=== PATIENT | female | born 1965 | race Caucasian/White ===

== ENCOUNTER 2024-10-18 14:14 | Outpatient (RCR) | payer OTHER, SELFPAY | END 2024-11-11 23:59 | disposition home or self-care (01) | LOC: SCTC 14:14 | PROVIDERS: PCP Physician Assistant; Referring Provider Physician Assistant; Visit Provider Radiology Therapeutic Radiology | DX: C50.212 Malignant neoplasm of upper-inner quadrant of left female breast (principal); Z17.0 Estrogen receptor positive status [ER+]; Z17.21 Progesterone receptor positive status; Z17.32 Human epidermal growth factor receptor 2 negative status; Z80.3 Family history of malignant neoplasm of breast; Z80.1 Family history of malignant neoplasm of trachea, bronchus and lung | CPT/HCPCS: 99213; G0463 ==

== ENCOUNTER 2024-11-16 08:59 | Outpatient (RCR) | payer OTHER, SELFPAY ==
--- NOTE | 2024-11-16 15:20 | CTCCONSULT_ITS ---
Patient: MATTIE MENCHACA : 1965 MR#: [id number] Page 2 of 2 CONSULTATION NOTE DATE OF CONSULTATION: 11/16/2024 NAME: MATTIE MENCHACA ACCOUNT: [id number] : 1965 AGE: 59 REFERRING PHYSICIAN: Man Santizo MD PRIMARY PHYSICIAN: Man Santizo MD REASON FOR VISIT: Establishing care for breast cancer ONCOLOGY HISTORY: DIAGNOSIS: Malignant neoplasm of upper-inner quadrant of left female breast [ICD10] C50.212 DATE OF DIAGNOSIS: 07/07/2024 STAGE/TNM: T2 NX MX TREATMENT HISTORY: Care?Plan Start?Date Cycle Day Intent HISTORY OF PRESENT ILLNESS: 59-year-old female ferritin abnormal mass in her left breast and her mammogram on 05/30/2024 which showed left upper inner quadrant abnormality about 14 x 10 x 21 mm size and had a biopsy in June 23, 20242023 which revealed invasive ductal carcinoma. It was found to be ER/MS positive. Patient was initially seen by Dr. Condon but she has started see another surgeon. 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 anastrozole - 1 mg 1 mg Daily 2. atorvastatin - 20 mg Daily 3. levothyroxine - 25 mcg 1 tab Daily 4. lisinopril - 20 mg Daily 5. Toviaz - 8 mg Daily Medications Last Reconciled by Carmen Champion LVN on 10/19/2024 ALLERGIES: No Known Drug Allergies REVIEW OF SYSTEMS: A complete 14-point review of systems was performed and is negative except as noted in interval history. PHYSICAL EXAMINATION: VITAL SIGNS: Temperature?98.7, B/P?146/90, Height?64.5?inches, Oxygen?Saturation?97% Weight?192?lbs (Change?since?10/18/24:?-2?lbs) PAIN: 0 - No pain ECOG Performance Status: 0 - Asymptomatic and fully active GENERAL APPEARANCE: Appears well, in no apparent distress, appropriately interactive. HEENT: Normocephalic, no temporal wasting, normal conjunctiva, no scleral icterus, normal hearing, lips without lesions, neck normal range of motion. CARDIOVASCULAR: Not assessed. PULMONARY: Normal respiratory effort, no respiratory distress or use of accessory muscles, speaking in full sentences, no tachypnea. EXTREMITIES: No pedal edema or cyanosis. SKIN: Normal skin appearance. NEUROLOGIC: Alert and oriented x4. PSHYCHIATRIC: Appropriate affect, mood normal, behavior normal, intact thought and speech. Patient's left breast about says he and have mass about 2 to 3 cm almost adhering to the chest wall LABORATORY DATA: I have personally reviewed and interpreted each of Ms. Menchaca?s relevant lab tests, abnormal findings are below: Date ASSESSMENT/PLAN: Invasive ductal carcinoma ER positive HER2 negative Patient is scheduled for surgery on 11/24/2024 Will follow-up on the final report Oncotype DX Advised to start taking anastrozole after the surgery Continue calcium and vitamin D CBC CMP RETURN TO CLINIC: 4 weeks BILLING AND COMPLIANCE: I reviewed external records from providers outside my specialty as summarized above. I spent a total of 50 minutes on this patient?s care on the day of their visit excluding time spent related to any billed procedures. This time includes time spent with the patient as well as time spent documenting in the medical record, reviewing patients records and tests, obtaining history, placing orders, communicating with other healthcare professionals, counseling the patient, family or caregiver, and/or care coordination for the diagnoses above. Electronically Signed by: Isak Bliss MD T: 3:18 PM CC: PCP: Man Santizo Referring: Man Santizo This document was completed utilizing speech recognition software. Grammatical errors, random word insertions, pronoun errors, and incomplete sentences are an occasional consequence of this system due to software limitations, ambient noise, and hardware issues. Any formal questions or concerns about the content, text or information contained within the body of this dictation should be directly addressed to the provider for clarification.
== END 2024-12-12 23:59 | disposition home or self-care (01) ==
LOC: SCTC 08:59
PROVIDERS: PCP Physician Assistant; Referring Provider Physician Assistant; Visit Provider Internal Medicine Hematology & Oncology
DX: C50.212 Malignant neoplasm of upper-inner quadrant of left female breast (principal); Z17.0 Estrogen receptor positive status [ER+]; Z17.32 Human epidermal growth factor receptor 2 negative status; Z17.21 Progesterone receptor positive status
CPT/HCPCS: 99213; G0463

== ENCOUNTER → 2024-12-06 | Outpatient (CLI) | payer OTHER, SELFPAY ==
[2024-12-06 16:56] LABS: Basophils # (Auto) 0.1 Thou/mm3 (0.0-0.2); Basophils % (Auto) 1 % (0-2.5); Eosinophils # (Auto) 0.3 Thou/mm3 (0.0-0.5); Eosinophils % (Auto) 3 % (0-10); Hematocrit 36.4 % (36.0-46.0); Hemoglobin 12.4 g/dL (12.0-16.0); Immature Granulocytes % (Auto) 1 % (0-0); Immature Granulocytes Auto 0.16 Thou/mm3 (0.00-0.00); Lymphocytes # (Auto) 3.1 Thou/mm3 (1.0-4.8); Lymphocytes % (Auto) 28 % (10-50); Mean Corpuscular HGB Conc 34.1 g/dl (31.0-37.0); Mean Corpuscular Hemoglobin 29.6 pg (25.0-35.0); Mean Corpuscular Volume 87 fL (80-100); Monocytes # (Auto) 0.6 Thou/mm3 (0.0-0.8); Monocytes % (Auto) 5 % (0-12); Neutrophils # (Auto) 7.1 Thou/mm3 (1.8-7.7); Neutrophils % (Auto) 62 % (37-80); Nucleated Red Blood Cell % 0 /100 WBC (0); Platelet Count 228 Thou/mm3 (140-440); RDW Standard Deviation 39.6 fL (36.4-46.3); Red Blood Count 4.19 Miln/mm3 (4.00-5.20); White Blood Count 11.4 Thou/mm3 (3.6-11.0)
[2024-12-06 17:21] LABS: Alanine Aminotransferase 39 U/L (10-49); Albumin, Serum 4.5 gm/dL (3.5-5.0); Albumin/Globulin Ratio 2.3 (1.2-2.2); Alkaline Phosphatase 72 U/L (46-116); Anion Gap 8 (7-16); Aspartate Amino Transferase 16 U/L (0-34); BUN/Creatinine Ratio 23 Ratio (12-20); Bilirubin,Total 0.4 mg/dL (0.3-1.2); Blood Urea Nitrogen 14 mg/dL (9-23); Calcium 9.7 mg/dL (8.3-10.6); Calcium (Corrected) 9.7 mg/dL (8.5-10.1); Chloride 105 mMol/L (98-107); Creatinine (Component) 0.6 mg/dL (0.6-1.3); Glucose 108 mg/dL (74-106); Osmolality,Calculated 282 (275-295); Potassium 3.8 mMol/L (3.4-5.1); Sodium 141 mMol/L (136-145); Total Protein 6.5 gm/dL (5.7-8.2); eGFR > 60 See Note
[2024-12-06 21:01] LABS: CA 15-3 5.2 U/mL (<32.4); Follicle Stimulating Hormone 36.53 mIU/mL (See Note)
[2024-12-19 07:08] LABS: Estradiol, Ultrasensitive* 9 pg/mL; Luteinizing Hormone* 13.7 mIU/mL
== END | disposition home or self-care (01) ==
PROVIDERS: PCP Physician Assistant; Referring Provider Internal Medicine Hematology & Oncology; Visit Provider Internal Medicine Hematology & Oncology
DX: C50.212 Malignant neoplasm of upper-inner quadrant of left female breast (principal)
CPT/HCPCS: 36415; 80053; 82670; 83001; 83002; 85025; 86300

== ENCOUNTER → 2024-12-09 | Outpatient (CLI) | payer OTHER, SELFPAY ==
--- NOTE | 2024-12-09 12:40 | XR_ITS ---
Examination: Bone densitometry Date and time of exam:December 09, 2024 1226 hours INDICATIONS: Hysterectomy age 47 diagnosis (cancer markers 13 2024 vitamin D 12 years Technique: Lumbar spine and hip total bone mineralization values of an calculated. Peak reference and age match control results have been displayed. Findings: Lumbar spine total bone mineralization is1.174 gm/cm2. This is 1.2 standard deviations above peak reference. This is 2.4 standard deviations above age-matched controls. Hip total bone mineralization is 0.957 gm/cm2 This is 0.0 standard deviations at peak reference. This is 0.8 standard deviations above age-matched controls Impression: There is normal mineralization based on lumbar spine measurements. There is normal mineralization based on hip measurements
== END | disposition home or self-care (01) ==
LOC: CDIM 11:50
PROVIDERS: Referring Provider Internal Medicine Hematology & Oncology; Visit Provider Internal Medicine Hematology & Oncology
DX: C50.212 Malignant neoplasm of upper-inner quadrant of left female breast (principal)
CPT/HCPCS: 77080

== ENCOUNTER 2025-01-04 09:45 | Outpatient (RCR) | payer OTHER, SELFPAY ==
--- NOTE | 2024-12-15 10:30 | CTCFLWUP_ITS ---
[facility] [address] [place], [place] [address] FOLLOW-UP NOTE Date: 12/15/2024 MR#: [id number] Name: MATTIE HARVEY : 1965 Dx: C50.212 Malignant neoplasm of upper-inner quadrant of left female breast Identification. Patient with left breast CA status post left partial mastectomy 1 sentinel lymph node removed 11/24/2024 ER/MI strongly positive HER2/cara negative Ki67 5%. Tumor size 22 x 15 x 15 mm single focus of invasive carcinoma size of DCIS 1 x 1 x 1 mm 5% of neoplasm. Upper inner quadrant 11:00. Oncotype DX has been ordered results not immediately available to us. Has already seen medical oncologist Dr. Bliss. who has prescribed anastrozole for patient. Bone density test has been performed indicating normal mineralization on lumbar and hip At appropriate time radiation therapy to the residual breast tissue 3 weeks of photon therapy +1-week of E boost to tumor site discussed. Side effects explained. Electronically signed by: Antonio Moreno M.D. 12/15/2024 10:27 AM
--- NOTE | 2024-12-15 10:31 | CTCTXPLN_ITS ---
[facility] [address] [place], [place] [address] Physician Clinical Treatment Planning Note Date of Service: 12/15/2024 Name: MTATIE Stone.: 1965 The patient has agreed to proceed with Radiation therapy. Tests and supporting medical records were interpreted to assist in defining the tumor location and extent of disease. Further imaging will be necessary to contour and delineate the volume to which the XRT will be provided. A. Treatment Intent: Curative B. Modality: 15 MV C. Requested Technique: 3D D. Treatment Site: Left breast E. Critical structures to be contoured on plan: F. In order to accomplish this plan, I am ordering/Prescribing the followin. Simulations (s) will be performed to accomplish a reproducible treatment position, to determine optimal treatment portals/beam arrangements, to design beam modifying devices and verify treatment portals on patient prior to the commencement of Radiation Therapy. Left breast 2. Devices; for immobilization and beam shaping: Vac-Jory 3. CT Guidance for placement of XRT ruiz Scan area: 4. Portal images Frequency: 5. Invivo transit dose measurement once per week on all VMAT patients. 6. Special Physics Consult Requested for: 7. Other requests: G. Dose Objectives: Curative Electronically signed by: Antonio Moreno M.D. 12/15/2024 10:29 AM
--- NOTE | 2024-12-15 10:33 | CTCTXPLNST_ITS ---
Radiation Oncology Treatment Planning Sheet Name: MATTIE HARVEY MR#: [id number] : 1965 Dx: C50.212 Malignant neoplasm of upper-inner quadrant of left female breast Date of Service: 12/15/2024 Account #: ?? Pt Treatment Intent: curative palliative other: Stage: Procedure CPT # Ordered Spec. Procedure 50653 Powell Complex (set-up) 10543 L breast/E boost 2 Powell Simple 82599 1 IMRT Plan 16116 MLC Devices VMAT 46577 Powell 3 D 98216 1 TRTMT dev Complex 27994 Vaklok/2FE boost 4 TRTMT dev simple 90500 1 Basic Azael 67047 5 Special Dosimetry 32480 Spec Physics 21702 Port Films 70600 3 SRS Cranial/1FX 75835 SBR 5 FX or Less /ex: 5 = 5 fx 00476 IMRT Simple 92082 IMRT Complex 01506 IGRT 89827 Rad del com 6-10 27835 Rad del com 11- 46763 5005 20 Cont Med Physics 98721 4 Treatment Planning 51700 1 Rad del com 20 mev 80256 Rad del inter 02-21 03819 Rad del inter 08-02 42153 Rad del simple 6 60902 Rad del simple 08-02 77631 Special Port Plan 29111 TRTMT dev inter 93138 Isodose Complex 01432 Isodose simple 01358 Resp Motion Mgmt Simulation 08021 Placement of Fiducial Markers 25129 Electronically Signed By: Antonio Moreno MD, VAMSHIR 12/15/2024 10:31 AM
--- NOTE | 2024-12-22 00:28 | CTCFLWUP_ITS ---
Patient: MATTIE HARVEY : 1965 Page 3 of 6 FOLLOW UP NOTE DATE OF SERVICE: 12/21/2024 NAME: MATTIE HARVEY ACCOUNT: [id number] : 1965 AGE: 59 Visit summary Mattie, a postmenopausal woman with a slow-growing breast tumor, is scheduled for a partial lumpectomy with Dr. Tiffanie Dalton. She has been prescribed letrozole for hormone therapy and is experiencing hot flashes at night. Her Oncotype DX score is 6, indicating a low risk of cancer recurrence, and chemotherapy is not recommended. She inquires about the timing of hormone therapy in relation to radiation treatment and plans to use aloe vera for managing potential radiation powers. Recent lab results show an elevated white blood cell count and mildly high glucose. INTERVAL HISTORY: Mattie is a postmenopausal woman presenting for follow-up of her breast cancer treatment. She reports experiencing hot flashes at night, which she describes as terrible. Mattie denies any current vaginal bleeding. The patient is scheduled for radiation after a partial lumpectomy with Dr. Tiffanie Dalton for a slow-growing tumor. She has been prescribed anastrazole for hormone therapy. Mattie expresses interest in understanding her treatment plan and prognosis, requesting a copy of her test results. Mattie inquires about the timing of starting her hormone therapy medication in relation to her radiation treatment. She mentions having aloe vera plants in her backyard, which she plans to use for managing potential radiation powers. Medical History - Menopause - Slow-growing tumor (breast cancer) Surgical History - Planned partial lumpectomy for slow-growing tumor Medications and Supplements - anastrazole - Prescribed for hormone-blocking therapy. - Vitamin D - Taken daily. - Multivitamin (Centrum Silver) Social History - Lifestyle: Patient has aloe vera plants in backyard Review of Systems General: Positive for hot flashes at night. Genitourinary: Negative for vaginal bleeding. ONCOLOGY HISTORY: DIAGNOSIS: Malignant neoplasm of upper-inner quadrant of left female breast [ICD10] C50.212 DATE OF DIAGNOSIS: 07/07/2024 STAGE/TNM: T2 NX MX TREATMENT HISTORY: Care?Plan Start?Date Cycle Day Intent HISTORY OF PRESENT ILLNESS: 59-year-old female ferritin abnormal mass in her left breast and her mammogram on 05/30/2024 which showed left upper inner quadrant abnormality about 14 x 10 x 21 mm size and had a biopsy in June 23, 20242023 which revealed invasive ductal carcinoma. It was found to be ER/MO positive. Patient was initially seen by Dr. Condon but she has started see another surgeon. She is planned for surgery on 11/24/2024 OTHER MEDICAL HISTORY/CONDITIONS: Left breast - invasive ductal carcinoma - dx 07/07/24 HTN Hyperlipidemia Hypothyroid Bladder urgency Laproscopic hysterectomy - 2010 [place] Tubal ligation - 1992 FAMILY HISTORY: Children: Pat grandmother - lung cancer - dx 50's Cancer History:?Pat wzej-ymauvi-gz 50's-BRCA + / Pat 1st cousin-BRCA+ only SOCIAL HISTORY: Occupational?History:?[employer] Education?Level:?College Graduate, 2 year degree Tobacco?Use:?Denies ETOH?Use:?Denies Drug?Note:?Denies Social History Note:?Lives with daughter [employer]PER[employer] HISTORY: Menarche?-?Age:?15 Menopause:?45 Hormone?Use:?Deneis :?3 Live?Births:?3 Age?1st?:?22 MEDICATIONS: 1. anastrozole - 1 mg 1 mg Daily 2. atorvastatin - 20 mg Daily 3. levothyroxine - 25 mcg 1 tab Daily 4. lisinopril - 20 mg Daily 5. Toviaz - 8 mg Daily Medications Last Reconciled by Ana Collier MA on 12/21/2024 ALLERGIES: No Known Drug Allergies REVIEW OF SYSTEMS: A complete 14-point review of systems was performed and is negative except as noted in interval history. PHYSICAL EXAMINATION: VITAL SIGNS: Temperature?98.7, B/P?135/83, Oxygen?Saturation?95% Weight?195?lbs (Change?since?12/15/24:?-1?lbs) PAIN: 2 - Mild pain ECOG Performance Status: 0 - Asymptomatic and fully active GENERAL APPEARANCE: Appears well, in no apparent distress, appropriately interactive. HEENT: Normocephalic, no temporal wasting, normal conjunctiva, no scleral icterus, normal hearing, lips without lesions, neck normal range of motion. CARDIOVASCULAR: Not assessed. PULMONARY: Normal respiratory effort, no respiratory distress or use of accessory muscles, speaking in full sentences, no tachypnea. EXTREMITIES: No pedal edema or cyanosis. SKIN: Normal skin appearance. NEUROLOGIC: Alert and oriented x4. PSHYCHIATRIC: Appropriate affect, mood normal, behavior normal, intact thought and speech. Patient's left breast about says he and have mass about 2 to 3 cm almost adhering to the chest wall LABORATORY DATA: I have personally reviewed and interpreted each of the patient?s relevant lab tests, abnormal findings are below: Date 12/06/24 ??WHITE?BLOOD?COUNT?(Thou/mm3) 11.4?H ??RED?BLOOD?COUNT?(Miln/mm3) 4.19 ??HEMOGLOBIN?(gm/dl) 12.4 ??HEMATOCRIT?(%) 36.4 ??PLATELET?COUNT?(Thou/mm3) 228 ??NEUTROPHILS?%,?AUTO?(%) 62 ??LYMPH?%,?AUTO?(%) 28 ??NEUTROPHILS,?AUTO?(Thou/mm3) 7.1 ??GLUCOSE,RANDOM?(mg/dL) 108?H ??BLOOD?UREA?NITROGEN?(mg/dL) 14 ??CREATININE?(mg/dL) 0.60 ??SODIUM?(mmol/L) 141 ??POTASSIUM?(mmol/L) 3.8 ??CHLORIDE?(mmol/L) 105 ??CrCl?(CandG)?(ml/min) 112.40 ??AST/SGOT?(Unit/L) 16 ??ALT/SGPT?(Unit/L) 39 ??ALKALINE?PHOSPHATASE?(Unit/L) 72 ??BILIRUBIN,?TOTAL?(mg/dL) 0.4 ??PROTEIN?TOTAL?(gm/dl) 6.5 ??ALBUMIN,?SERUM?(gm/dl) 4.5 ??GLOBULIN?(gm/dl) 2.0?L ??ALBUMIN/GLOBULIN?RATIO 2.3?H ??CALCIUM,?SERUM?(mg/dL) 9.7 ??CALCIUM?SERUM?(CORRECTED)?(mg/dL) 9.7 ASSESSMENT/PLAN: Invasive ductal carcinoma ER positive HER2 negative Patient is scheduled for surgery on 11/24/2024 Mattie, a postmenopausal woman, presents with a slow-growing breast tumor, experiencing hot flashes at night. Breast Cancer Assessment: Patient has been diagnosed with a slow-growing breast tumor. Dr. Tiffanie Dalton has planned a partial lumpectomy. Oncotype DX testing has been ordered and results show a score of 6, indicating a 3% risk of cancer recurrence with anti-hormone therapy. The benefit of chemotherapy is less than 1%. Based on these findings, chemotherapy is not recommended. Plan: - completed partial lumpectomy - radiation planned - Initiate hormone therapy post-radiation: - Letrozole for 7 years, followed by - Tamoxifen for 3 years - Start hormone therapy every other day initially, then transition to daily at night - Radiation therapy: - Use aloe vera and diaper rash cream for radiation powers - Keep skin clean before radiation - Post-radiation follow-up: - Mammogram in 6 months, then annually - Referral to lymphedema clinic for post-radiation exercises - Follow-up appointment in 2 months after starting hormone therapy - Continue monitoring for 10 years Menopausal Symptoms Assessment: Patient reports experiencing hot flashes at night. Hormone levels confirm menopause. No vaginal bleeding reported. Plan: - Recommend keeping room cool and using cold cotton sheets for hot flashes - Continue daily vitamin D supplementation - Initiate daily multivitamin (e.g., Centrum Silver) Abnormal Laboratory Results Assessment: Recent laboratory tests show elevated white blood cell count of 11.4, hemoglobin at 12.4, and mildly elevated glucose. Liver enzymes are within normal limits. Bone density is normal. Plan: - Monitor white blood cell count and glucose levels at future appointments - Continue vitamin D supplementation for bone health ORDERS: Order # Description [id number] Follow Up 2 Months + Comprehensive Metabolic Panel - 12 + CBC with Auto Diff + CA 15-3 RETURN TO CLINIC: 2 months Instructions Dear Mattie, Thank you for visiting today. Here is a summary of the olson instructions: Medications: - Start anastrazole after radiation therapy - Begin by taking it every other day - Then take it daily at night - Take vitamin D daily - Take a multivitamin like Centrum Silver daily Planned Procedures: - Partial lumpectomy for slow-growing - Radiation therapy with dr Moreno Post-Radiation Care: - Use aloe vera for radiation powers - Use diaper rash cream for radiation powers - Keep skin clean before radiation treatments Follow-up: - See oncologist in 2 months after starting anastrazole - Mammogram in 6 months after radiation, then annually - Referral to lymphedema clinic for exercises after radiation Treatment Plan: - Take hormone-blocking medicine for 10 years - 7 years of anastrazole - 3 years of tamoxifen Lifestyle Recommendations: - Keep bedroom cool at night - Use cold cotton sheets to help with hot flashes Please reach out if you have any questions or concerns. Best Regards, carlos alberto molina, Oncology BILLING AND COMPLIANCE: I reviewed external records from providers outside my specialty as summarized above. I spent a total of 50 minutes on this patient?s care on the day of their visit excluding time spent related to any billed procedures. This time includes time spent with the patient as well as time spent documenting in the medical record, reviewing patients records and tests, obtaining history, placing orders, communicating with other healthcare professionals, counseling the patient, family or caregiver, and/or care coordination for the diagnoses above. Electronically Signed by: Carlos Alberto Molina MD T: 12:26 AM CC: PCP: Muriel Rogers (tuleriver) Referring: Muriel Rogers (tuleriver) This document was completed utilizing speech recognition software. Grammatical errors, random word insertions, pronoun errors, and incomplete sentences are an occasional consequence of this system due to software limitations, ambient noise, and hardware issues. Any formal questions or concerns about the content, text or information contained within the body of this dictation should be directly addressed to the provider for clarification.
== END 2025-01-11 23:59 | disposition home or self-care (01) ==
LOC: SCTC 09:45
PROVIDERS: PCP Nurse Practitioner Family; Referring Provider Nurse Practitioner Family; Visit Provider Internal Medicine Hematology & Oncology
DX: Z51.0 Encounter for antineoplastic radiation therapy (principal); C50.212 Malignant neoplasm of upper-inner quadrant of left female breast; Z17.0 Estrogen receptor positive status [ER+]; Z17.21 Progesterone receptor positive status; Z17.32 Human epidermal growth factor receptor 2 negative status; Z78.0 Asymptomatic menopausal state; D72.829 Elevated white blood cell count, unspecified; R73.9 Hyperglycemia, unspecified
CPT/HCPCS: 77014; 77290; 77295; 77300; 77334; 99212; G0463

== ENCOUNTER 2025-02-10 09:20 | Outpatient (RCR) | payer OTHER, SELFPAY ==
--- NOTE | 2025-01-16 12:36 | CTCSNOTE_ITS ---
[facility] [address] [place], [place] [address] Simple Simulation Note Date: 01/16/2025 MR#: [id number] Name: MATTIE HARVEY : 1965 Port was taken and the field size location and blocks were checked. (A) The port was noted to be in ideal position along with its blocks. Electronically signed by: Antnoio Moreno MD, VAMSHIR 01/16/2025 12:34 PM
== END 2025-02-11 23:59 | disposition home or self-care (01) ==
LOC: SCTC 09:20
PROVIDERS: PCP Physician Assistant; Referring Provider Physician Assistant; Visit Provider Internal Medicine Hematology & Oncology
DX: Z51.0 Encounter for antineoplastic radiation therapy (principal); C50.212 Malignant neoplasm of upper-inner quadrant of left female breast; Z17.0 Estrogen receptor positive status [ER+]; Z17.21 Progesterone receptor positive status; Z17.32 Human epidermal growth factor receptor 2 negative status; L59.9 Disorder of the skin and subcutaneous tissue related to radiation, unspecified; Y84.2 Radiological procedure and radiotherapy as the cause of abnormal reaction of the patient, or of later complication, without mention of misadventure at the time of the procedure; Z78.0 Asymptomatic menopausal state; D72.829 Elevated white blood cell count, unspecified; R73.9 Hyperglycemia, unspecified
CPT/HCPCS: 77280; 77336; 77412; 77417

== ENCOUNTER 2025-02-27 15:12 | Outpatient (RCR) | payer OTHER, SELFPAY ==
--- NOTE | 2025-02-13 10:19 | CTCTRTNOTE_ITS ---
[facility] [address], [place] [address] Weekly Management Date: 02/13/2025 ?? Name: MATTIE Stone.: 1965 A. Patient is currently at 4005. cGy. B. Patient is tolerating treatment well. Minor dry desquamation of skin. C. Resume radiation therapy. Using E boost 11:00 Electronically signed by: Antonio Moreno M.D. 02/13/2025 10:16 AM
--- NOTE | 2025-02-13 10:20 | CTCSNOTE_ITS ---
[facility] [address] [place], [place] [address] Complex Simulation Note Date: 02/13/2025 MR#: [id number] Name: MATTIE HARVEY : 1965 Dx: C50.212 Malignant neoplasm of upper-inner quadrant of left female breast (A) Under direct visualization the tumor volume was localized and field was set up clinically. (C) Patient was treated with custom blocks. . Electronically signed by: Antonio Moreno MD, VAMSHIR 02/13/2025 10:17 AM
--- NOTE | 2025-02-28 00:01 | CTCFLWUP_ITS ---
Patient: MATTIE HARVEY : 1965 Page 3 of 5 FOLLOW UP NOTE DATE OF SERVICE: 02/27/2025 NAME: MATTIE HARVEY ACCOUNT: [id number] : 1965 AGE: 59 INTERVAL HISTORY: Subjective: Chief Complaint Fatigue after completing radiation treatment, feeling really fatigued History of Present Illness Reilly Luke, a patient with very low-risk breast cancer, presents for follow-up one week after completing radiation therapy. She reports significant fatigue following her final radiation treatment, stating, It just took me out. Despite the fatigue, she has been trying to maintain her activity levels and get out to do things. The patient describes feeling all pepped up during her radiation treatments, but experienced a notable increase in fatigue after the last session. She has not yet restarted her hormone blocking medication as instructed to wait until a week after completing radiation. Mattie inquires about when to resume the medication and is advised to start once she begins feeling better. Mattie mentions finding her lab requisition but has not completed the tests yet. She expresses concern about weight gain, which is attributed to hormonal changes. To address this, she reports incorporating blueberry smoothies with bananas, protein powder, and avoiding yogurt into her diet. She confirms taking vitamin D3 supplements as recommended. The patient inquires about sun exposure and is advised to avoid it due to her recent radiation treatments. She also asks about taking magnesium glycinate supplements. Mattie demonstrates adherence to previous recommendations, such as carrying her purse on the opposite side of her treated arm and avoiding heavy lifting. Medications and Supplements - Hormone blocking medicine - Not yet started. Patient instructed to start when feeling better. - Vitamin D3 - Multivitamin (Centrum mentioned as an option) Review of Systems General: Positive for fatigue. Skin: Positive for skin sensitivity to sun exposure. Objective: Physical Examination General: Patient appears strong. ONCOLOGY HISTORY: DIAGNOSIS: Malignant neoplasm of upper-inner quadrant of left female breast [ICD10] C50.212 DATE OF DIAGNOSIS: 07/07/2024 STAGE/TNM: T2 NX MX TREATMENT HISTORY: Care?Plan Start?Date Cycle Day Intent HISTORY OF PRESENT ILLNESS: 59-year-old female ferritin abnormal mass in her left breast and her mammogram on 05/30/2024 which showed left upper inner quadrant abnormality about 14 x 10 x 21 mm size and had a biopsy in June 23, 20242023 which revealed invasive ductal carcinoma. It was found to be ER/FL positive. Patient was initially seen by Dr. Condon but she has started see another surgeon. She is planned for surgery on 11/24/2024 OTHER MEDICAL HISTORY/CONDITIONS: Left breast - invasive ductal carcinoma - dx 07/07/24 HTN Hyperlipidemia Hypothyroid Bladder urgency Laproscopic hysterectomy - 2010 [place] Tubal ligation - 1992 FAMILY HISTORY: Children: Pat grandmother - lung cancer - dx 50's Cancer History:?Pat klwr-[id number] 50's-BRCA + / Pat 1st cousin-BRCA+ only SOCIAL HISTORY: Occupational?History:?[employer] Education?Level:?College Graduate, 2 year degree Tobacco?Use:?Denies ETOH?Use:?Denies Drug?Note:?Denies Social History Note:?Lives with daughter [employer] HISTORY: Menarche?-?Age:?15 Menopause:?45 Hormone?Use:?Deneis :?3 Live?Births:?3 Age?1st?:?22 MEDICATIONS: 1. anastrozole - 1 mg 1 mg Daily 2. atorvastatin - 20 mg Daily 3. levothyroxine - 25 mcg 1 tab Daily 4. lisinopril - 20 mg Daily 5. Toviaz - 8 mg Daily Medications Last Reconciled by Ana Collier MA on 02/27/2025 ALLERGIES: No Known Drug Allergies REVIEW OF SYSTEMS: A complete 14-point review of systems was performed and is negative except as noted in interval history. PHYSICAL EXAMINATION: VITAL SIGNS: Temperature?99.3, B/P?131/86, Oxygen?Saturation?94% Weight?202?lbs (Change?since?02/13/25:?6?lbs) PAIN: 0 - No pain ECOG Performance Status: 0 - Asymptomatic and fully active GENERAL APPEARANCE: Appears well, in no apparent distress, appropriately interactive. HEENT: Normocephalic, no temporal wasting, normal conjunctiva, no scleral icterus, normal hearing, lips without lesions, neck normal range of motion. CARDIOVASCULAR: Not assessed. PULMONARY: Normal respiratory effort, no respiratory distress or use of accessory muscles, speaking in full sentences, no tachypnea. EXTREMITIES: No pedal edema or cyanosis. SKIN: Normal skin appearance. NEUROLOGIC: Alert and oriented x4. PSHYCHIATRIC: Appropriate affect, mood normal, behavior normal, intact thought and speech. Patient's left breast about says he and have mass about 2 to 3 cm almost adhering to the chest wall LABORATORY DATA: I have personally reviewed and interpreted each of the patient?s relevant lab tests, abnormal findings are below: Date 12/06/24 ??WHITE?BLOOD?COUNT?(Thou/mm3) 11.4?H ??RED?BLOOD?COUNT?(Miln/mm3) 4.19 ??HEMOGLOBIN?(gm/dl) 12.4 ??HEMATOCRIT?(%) 36.4 ??PLATELET?COUNT?(Thou/mm3) 228 ??NEUTROPHILS?%,?AUTO?(%) 62 ??LYMPH?%,?AUTO?(%) 28 ??NEUTROPHILS,?AUTO?(Thou/mm3) 7.1 ??GLUCOSE,RANDOM?(mg/dL) 108?H ??BLOOD?UREA?NITROGEN?(mg/dL) 14 ??CREATININE?(mg/dL) 0.60 ??SODIUM?(mmol/L) 141 ??POTASSIUM?(mmol/L) 3.8 ??CHLORIDE?(mmol/L) 105 ??CrCl?(CandG)?(ml/min) 112.40 ??AST/SGOT?(Unit/L) 16 ??ALT/SGPT?(Unit/L) 39 ??ALKALINE?PHOSPHATASE?(Unit/L) 72 ??BILIRUBIN,?TOTAL?(mg/dL) 0.4 ??PROTEIN?TOTAL?(gm/dl) 6.5 ??ALBUMIN,?SERUM?(gm/dl) 4.5 ??GLOBULIN?(gm/dl) 2.0?L ??ALBUMIN/GLOBULIN?RATIO 2.3?H ??CALCIUM,?SERUM?(mg/dL) 9.7 ??CALCIUM?SERUM?(CORRECTED)?(mg/dL) 9.7 ASSESSMENT/PLAN: Invasive ductal carcinoma ER positive HER2 negative Patient is scheduled for surgery on 11/24/2024 Mattie, a postmenopausal woman, presents with a slow-growing breast tumor, experiencing hot flashes at night. Patient has completed radiation therapy for very low-risk breast cancer. She reports feeling fatigued, particularly after the last radiation session. The cancer is described as very low-risk, and the patient is considered young. Hormone blocking therapy is planned for 10 years due to the patient's age. Plan: - Start hormone blocking medication when feeling better, approximately one week post-radiation - Continue hormone blocking therapy for 10 years - Avoid lifting heavy objects with the affected arm - Avoid sun exposure to prevent aggravation of radiation-induced skin changes - Follow up in 2 months - Referral to Lymphedema Clinic for: - Measurement of affected arm - Education on appropriate exercises - Potential fitting for a better-fitting bra - Laboratory tests ordered (specifics not mentioned) - Encourage dietary modifications: - Continue consumption of blueberry smoothies with bananas, yogurt, and protein powder - Recommend weight management - Continue vitamin D3 supplementation or switch to a multivitamin (e.g., Centrum) - Increase water intake - Post-radiation follow-up: - Mammogram in 6 months, then annually - Referral to lymphedema clinic for post-radiation exercises - Follow-up appointment in 2 months after starting hormone therapy - Continue monitoring for 10 years Menopausal Symptoms Assessment: Patient reports experiencing hot flashes at night. Hormone levels confirm menopause. No vaginal bleeding reported. Plan: - Recommend keeping room cool and using cold cotton sheets for hot flashes - Continue daily vitamin D supplementation - Initiate daily multivitamin (e.g., Centrum Silver) Abnormal Laboratory Results Assessment: Recent laboratory tests show elevated white blood cell count of 11.4, hemoglobin at 12.4, and mildly elevated glucose. Liver enzymes are within normal limits. Bone density is normal. Plan: - Monitor white blood cell count and glucose levels at future appointments - Continue vitamin D supplementation for bone health ORDERS: Order # Description [id number] Comprehensive Metabolic Panel - 12 + CBC with Auto Diff [id number] Follow Up 2 Months RETURN TO CLINIC: BILLING AND COMPLIANCE: I reviewed external records from providers outside my specialty as summarized above. I spent a total of 50 minutes on this patient?s care on the day of their visit excluding time spent related to any billed procedures. This time includes time spent with the patient as well as time spent documenting in the medical record, reviewing patients records and tests, obtaining history, placing orders, communicating with other healthcare professionals, counseling the patient, family or caregiver, and/or care coordination for the diagnoses above. Electronically Signed by: Isak Bliss MD T: 11:59 PM CC: PCP: Man Santizo Referring: Man Santizo This document was completed utilizing speech recognition software. Grammatical errors, random word insertions, pronoun errors, and incomplete sentences are an occasional consequence of this system due to software limitations, ambient noise, and hardware issues. Any formal questions or concerns about the content, text or information contained within the body of this dictation should be directly addressed to the provider for clarification.
== END 2025-03-13 23:59 | disposition home or self-care (01) ==
LOC: SCTC 15:12
PROVIDERS: PCP Physician Assistant; Referring Provider Physician Assistant; Visit Provider Internal Medicine Hematology & Oncology
DX: Z51.0 Encounter for antineoplastic radiation therapy (principal); C50.212 Malignant neoplasm of upper-inner quadrant of left female breast; Z17.0 Estrogen receptor positive status [ER+]; Z17.32 Human epidermal growth factor receptor 2 negative status; Z17.21 Progesterone receptor positive status; R53.0 Neoplastic (malignant) related fatigue; L59.8 Other specified disorders of the skin and subcutaneous tissue related to radiation; Y84.2 Radiological procedure and radiotherapy as the cause of abnormal reaction of the patient, or of later complication, without mention of misadventure at the time of the procedure; N95.1 Menopausal and female climacteric states; R23.2 Flushing; D72.829 Elevated white blood cell count, unspecified; R73.9 Hyperglycemia, unspecified
CPT/HCPCS: 77290; 77300; 77332; 77336; 77412; 99212; G0463

== ENCOUNTER 2025-03-15 10:50 | Outpatient (RCR) | payer OTHER, SELFPAY ==
--- NOTE | 2025-03-15 11:29 | CTCTSUMM_ITS ---
[facility] [address] [place], [place] [address] Treatment Summary Date: 03/15/2025 MR#: [id number] Name: MATTIE HARVEY : 1965 Dx: C50.212 Referring Physician: Man JEROME [facility] (A) Diagnosis: [ICD10] C50.212 Malignant neoplasm of upper-inner quadrant of left female breast (B) Aim of Treatment: ??Curative (C) Concomitant Chemotherapy: No (D) Radiation Dates: 01/17/2025 through 02/21/2020 Treatment Prescription 11 boost Electron boost 15 MeV E- 1,000 cGy 5 200 cGy Approved L breast 2 FIELD SEG Mixed Mode 4,005 cGy 15 267 cGy Approved (E) All ruiz were treated using customized MLC Blocks (F) Finding at Discharge: Patient seen for first follow-up on 03/15/25. Patient was recovering from her fatigue and had good cosmetic result of her breast radiation. Patient was taking anastrozole under Dr. Bliss's direction. (G) Discharge Instructions and F/U Appt was given: The patient was also advised to continue follow-up with Dr. Bliss and primary care physician: cc: Man Majano MD Electronically signed by: Antonio Moreno MD, VAMSHIR 03/15/2025 11:26 AM
== END 2025-04-13 23:59 | disposition home or self-care (01) ==
LOC: SCTC 10:50
PROVIDERS: PCP Physician Assistant; Referring Provider Physician Assistant; Visit Provider Radiology Therapeutic Radiology
DX: C50.212 Malignant neoplasm of upper-inner quadrant of left female breast (principal); Z17.0 Estrogen receptor positive status [ER+]; Z17.21 Progesterone receptor positive status; Z17.32 Human epidermal growth factor receptor 2 negative status; Z79.811 Long term (current) use of aromatase inhibitors; Z92.3 Personal history of irradiation
CPT/HCPCS: 99212; G0463

== ENCOUNTER → 2025-04-28 | Outpatient (CLI) | payer OTHER, SELFPAY ==
[2025-04-28 16:46] LABS: Basophils # (Auto) 0.0 Thou/mm3 (0.0-0.2); Basophils % (Auto) 0 % (0-2.5); Eosinophils # (Auto) 0.0 Thou/mm3 (0.0-0.5); Eosinophils % (Auto) 0 % (0-10); Hematocrit 36.9 % (36.0-46.0); Hemoglobin 12.9 g/dL (12.0-16.0); Immature Granulocytes Auto 0.14 Thou/mm3 (0.00-0.00); Lymphocytes # (Auto) 1.1 Thou/mm3 (1.0-4.8); Lymphocytes % (Auto) 9 % (10-50); Mean Corpuscular HGB Conc 35.0 g/dl (31.0-37.0); Mean Corpuscular Hemoglobin 30.5 pg (25.0-35.0); Mean Corpuscular Volume 87 fL (80-100); Monocytes # (Auto) 0.2 Thou/mm3 (0.0-0.8); Monocytes % (Auto) 1 % (0-12); Neutrophils # (Auto) 10.8 Thou/mm3 (1.8-7.7); Neutrophils % (Auto) 88 % (37-80); Nucleated Red Blood Cell # 0.00 Thou/mm3 (0.00-0.00); Nucleated Red Blood Cell % 0 /100 WBC (0); Platelet Count 229 Thou/mm3 (140-440); RDW Standard Deviation 41.1 fL (36.4-46.3); Red Blood Count 4.23 Miln/mm3 (4.00-5.20); White Blood Count 12.3 Thou/mm3 (3.6-11.0)
[2025-04-28 18:00] LABS: Alanine Aminotransferase 32 U/L (10-49); Albumin, Serum 4.8 gm/dL (3.5-5.0); Albumin/Globulin Ratio 2.2 (1.2-2.2); Alkaline Phosphatase 71 U/L (46-116); Anion Gap 12 (7-16); Aspartate Amino Transferase 21 U/L (0-34); BUN/Creatinine Ratio 13 Ratio (12-20); Bilirubin,Total 0.5 mg/dL (0.3-1.2); Blood Urea Nitrogen 13 mg/dL (9-23); Calcium 10.1 mg/dL (8.3-10.6); Calcium (Corrected) 10.1 mg/dL (8.5-10.1); Carbon Dioxide 25.6 mMol/L (20.0-31.0); Chloride 103 mMol/L (98-107); Creatinine (Component) 1.0 mg/dL (0.6-1.3); Globulin 2.2 gm/dL (2.3-3.5); Glucose 231 mg/dL (74-106); Osmolality,Calculated 288 (275-295); Potassium 4.2 mMol/L (3.4-5.1); Sodium 141 mMol/L (136-145); Total Protein 7.0 gm/dL (5.7-8.2); eGFR > 60 See Note
== END | disposition home or self-care (01) ==
LOC: SCTO 15:37
PROVIDERS: PCP Physician Assistant; Referring Provider Internal Medicine Hematology & Oncology; Visit Provider Internal Medicine Hematology & Oncology
DX: C50.212 Malignant neoplasm of upper-inner quadrant of left female breast (principal)
CPT/HCPCS: 36415; 80053; 85025

== ENCOUNTER 2025-05-01 15:00 | Outpatient (RCR) | payer OTHER, SELFPAY ==
--- NOTE | 2025-05-02 13:18 | CTCFLWUP_ITS ---
Patient: MATTIE HARVEY : 1965 Page 2 of 3 FOLLOW UP NOTE DATE OF SERVICE: 05/01/2025 NAME: MATTIE HARVEY ACCOUNT: [id number] : 1965 AGE: 59 INTERVAL HISTORY: Subjective: Chief Complaint Fatigue after completing radiation treatment, feeling really fatigued History of Present Illness Reilly Luke, a patient with very low-risk breast cancer, presents for follow-up one week after completing radiation therapy. She reports significant fatigue following her final radiation treatment, stating, It just took me out. Despite the fatigue, she has been trying to maintain her activity levels and get out to do things. The patient describes feeling all pepped up during her radiation treatments, but experienced a notable increase in fatigue after the last session. She has not yet restarted her hormone blocking medication as instructed to wait until a week after completing radiation. Mattie inquires about when to resume the medication and is advised to start once she begins feeling better. Mattie mentions finding her lab requisition but has not completed the tests yet. She expresses concern about weight gain, which is attributed to hormonal changes. To address this, she reports incorporating blueberry smoothies with bananas, protein powder, and avoiding yogurt into her diet. She confirms taking vitamin D3 supplements as recommended. The patient inquires about sun exposure and is advised to avoid it due to her recent radiation treatments. She also asks about taking magnesium glycinate supplements. Mattie demonstrates adherence to previous recommendations, such as carrying her purse on the opposite side of her treated arm and avoiding heavy lifting. Medications and Supplements - Hormone blocking medicine - Not yet started. Patient instructed to start when feeling better. - Vitamin D3 - Multivitamin (Centrum mentioned as an option) Review of Systems General: Positive for fatigue. Skin: Positive for skin sensitivity to sun exposure. Objective: Physical Examination General: Patient appears strong. ONCOLOGY HISTORY: DIAGNOSIS: Malignant neoplasm of upper-inner quadrant of left female breast [ICD10] C50.212 DATE OF DIAGNOSIS: 07/07/2024 STAGE/TNM: T2 NX MX TREATMENT HISTORY: Care?Plan Start?Date Cycle Day Intent HISTORY OF PRESENT ILLNESS: 59-year-old female ferritin abnormal mass in her left breast and her mammogram on 05/30/2024 which showed left upper inner quadrant abnormality about 14 x 10 x 21 mm size and had a biopsy in June 23, 20242023 which revealed invasive ductal carcinoma. It was found to be ER/DC positive. Patient was initially seen by Dr. Condon but she has started see another surgeon. She is planned for surgery on 11/24/2024 OTHER MEDICAL HISTORY/CONDITIONS: Left breast - invasive ductal carcinoma - dx 07/07/24 HTN Hyperlipidemia Hypothyroid Bladder urgency Laproscopic hysterectomy - 2010 [place] Tubal ligation - 1992 FAMILY HISTORY: Children: Pat grandmother - lung cancer - dx 50's Cancer History:?Pat sghs-[id number]-bd 50's-BRCA + / Pat 1st cousin-BRCA+ only SOCIAL HISTORY: Occupational?History:?[employer] Education?Level:?College Graduate, 2 year degree Tobacco?Use:?Denies ETOH?Use:?Denies Drug?Note:?Denies Social History Note:?Lives with daughter [employer] COORDINATOR HISTORY: Menarche?-?Age:?15 Menopause:?45 Hormone?Use:?Deneis :?3 Live?Births:?3 Age?1st?:?22 MEDICATIONS: 1. anastrozole - 1 mg 1 mg Daily 2. atorvastatin - 20 mg Daily 3. levothyroxine - 25 mcg 1 tab Daily 4. lisinopril - 30 mg 1 tab Daily 5. Toviaz - 8 mg Daily Medications Last Reconciled by Adali Monet MA on 05/01/2025 ALLERGIES: iodine REVIEW OF SYSTEMS: A complete 14-point review of systems was performed and is negative except as noted in interval history. PHYSICAL EXAMINATION: VITAL SIGNS: GENERAL APPEARANCE: Appears well, in no apparent distress, appropriately interactive. HEENT: Normocephalic, no temporal wasting, normal conjunctiva, no scleral icterus, normal hearing, lips without lesions, neck normal range of motion. CARDIOVASCULAR: Not assessed. PULMONARY: Normal respiratory effort, no respiratory distress or use of accessory muscles, speaking in full sentences, no tachypnea. EXTREMITIES: No pedal edema or cyanosis. SKIN: Normal skin appearance. NEUROLOGIC: Alert and oriented x4. PSHYCHIATRIC: Appropriate affect, mood normal, behavior normal, intact thought and speech. Patient's left breast about says he and have mass about 2 to 3 cm almost adhering to the chest wall LABORATORY DATA: I have personally reviewed and interpreted each of the patient?s relevant lab tests, abnormal findings are below: Date 12/06/24 04/28/25 ??WHITE?BLOOD?COUNT?(Thou/mm3) 11.4?H 12.3?H ??RED?BLOOD?COUNT?(Miln/mm3) 4.19 4.23 ??HEMOGLOBIN?(gm/dl) 12.4 12.9 ??HEMATOCRIT?(%) 36.4 36.9 ??PLATELET?COUNT?(Thou/mm3) 228 229 ??NEUTROPHILS?%,?AUTO?(%) 62 88?H ??LYMPH?%,?AUTO?(%) 28 9?L ??NEUTROPHILS,?AUTO?(Thou/mm3) 7.1 10.8?H ??GLUCOSE,RANDOM?(mg/dL) 108?H 231?H ??BLOOD?UREA?NITROGEN?(mg/dL) 14 13 ??CREATININE?(mg/dL) 0.60 1.00 ??SODIUM?(mmol/L) 141 141 ??POTASSIUM?(mmol/L) 3.8 4.2 ??CHLORIDE?(mmol/L) 105 103 ??CrCl?(CandG)?(ml/min) 112.40 69.57 ??AST/SGOT?(Unit/L) 16 21 ??ALT/SGPT?(Unit/L) 39 32 ??ALKALINE?PHOSPHATASE?(Unit/L) 72 71 ??BILIRUBIN,?TOTAL?(mg/dL) 0.4 0.5 ??PROTEIN?TOTAL?(gm/dl) 6.5 7.0 ??ALBUMIN,?SERUM?(gm/dl) 4.5 4.8 ??GLOBULIN?(gm/dl) 2.0?L 2.2?L ??ALBUMIN/GLOBULIN?RATIO 2.3?H 2.2 ??CALCIUM,?SERUM?(mg/dL) 9.7 10.1 ??CALCIUM?SERUM?(CORRECTED)?(mg/dL) 9.7 10.1 ASSESSMENT/PLAN: Invasive ductal carcinoma ER positive HER2 negative Patient is scheduled for surgery on 11/24/2024 Mattie, a postmenopausal woman, presents with a slow-growing breast tumor, experiencing hot flashes at night. Patient has completed radiation therapy for very low-risk breast cancer. She reports feeling fatigued, particularly after the last radiation session. The cancer is described as very low-risk, and the patient is considered young. Hormone blocking therapy is planned for 10 years due to the patient's age. Plan: - Start hormone blocking medication when feeling better, approximately one week post-radiation - Continue hormone blocking therapy for 10 years - Avoid lifting heavy objects with the affected arm - Avoid sun exposure to prevent aggravation of radiation-induced skin changes - Follow up in 2 months - Referral to Lymphedema Clinic for: - Measurement of affected arm - Education on appropriate exercises - Potential fitting for a better-fitting bra - Laboratory tests ordered (specifics not mentioned) - Encourage dietary modifications: - Continue consumption of blueberry smoothies with bananas, yogurt, and protein powder - Recommend weight management - Continue vitamin D3 supplementation or switch to a multivitamin (e.g., Centrum) - Increase water intake - Post-radiation follow-up: - Mammogram in 6 months, then annually - Referral to lymphedema clinic for post-radiation exercises - Follow-up appointment in 2 months after starting hormone therapy - Continue monitoring for 10 years Menopausal Symptoms Assessment: Patient reports experiencing hot flashes at night. Hormone levels confirm menopause. No vaginal bleeding reported. Plan: - Recommend keeping room cool and using cold cotton sheets for hot flashes - Continue daily vitamin D supplementation - Initiate daily multivitamin (e.g., Centrum Silver) Abnormal Laboratory Results Assessment: Recent laboratory tests show elevated white blood cell count of 11.4, hemoglobin at 12.4, and mildly elevated glucose. Liver enzymes are within normal limits. Bone density is normal. Plan: - Monitor white blood cell count and glucose levels at future appointments - Continue vitamin D supplementation for bone health RETURN TO CLINIC: I reviewed the diagnosis, prognosis, and recommended treatment/procedure options with the patient (and/or their legal apprenticeship training representative), including the potential benefits, risks, side effects and alternative therapies. We also discussed the option of no treatment and the possibility of clinical trial participation, if applicable. All questions were addressed, and they demonstrated understanding. They provided informed consent to proceed with the proposed plan of care. BILLING AND COMPLIANCE: I reviewed external records from providers outside my specialty as summarized above. I spent a total of 50 minutes on this patient?s care on the day of their visit excluding time spent related to any billed procedures. This time includes time spent with the patient as well as time spent documenting in the medical record, reviewing patients records and tests, obtaining history, placing orders, communicating with other healthcare professionals, counseling the patient, family or caregiver, and/or care coordination for the diagnoses above. Electronically Signed by: Isak Bliss MD T: 1:15 PM CC: PCP: Man Santizo Referring: Man Santizo This document was completed utilizing speech recognition software. Grammatical errors, random word insertions, pronoun errors, and incomplete sentences are an occasional consequence of this system due to software limitations, ambient noise, and hardware issues. Any formal questions or concerns about the content, text or information contained within the body of this dictation should be directly addressed to the provider for clarification.
== END 2025-05-14 23:59 | disposition home or self-care (01) ==
LOC: SCTC 15:00
PROVIDERS: PCP Physician Assistant; Referring Provider Physician Assistant; Visit Provider Internal Medicine Hematology & Oncology
DX: C50.212 Malignant neoplasm of upper-inner quadrant of left female breast (principal); Z17.0 Estrogen receptor positive status [ER+]; Z17.21 Progesterone receptor positive status; Z17.32 Human epidermal growth factor receptor 2 negative status; Z92.3 Personal history of irradiation; R53.0 Neoplastic (malignant) related fatigue; N95.1 Menopausal and female climacteric states; R23.2 Flushing; D72.829 Elevated white blood cell count, unspecified; R73.9 Hyperglycemia, unspecified; Z79.811 Long term (current) use of aromatase inhibitors
CPT/HCPCS: 99212; G0463

== ENCOUNTER → 2025-06-21 | Outpatient (CLI) | payer OTHER, SELFPAY ==
--- NOTE | 2025-06-21 10:15 | XR_ITS ---
Examination: Breast ultrasound complete, bilateral Date and time of exam: June 21, 2025, 1049 hours INDICATIONS: Diagnosis malignant neoplasm upper inner quadrant left female breast palpable lump with pain in the area of lumpectomy 7 months ago, diagnosis by surgeon seroma in the 11 o'clock position near the breast biopsy marker Technique: Real-time grayscale ultrasonographic imaging bilateral breasts, including all 4 quadrants as well as nipple retroareolar and axillary regions. Findings: Sonographic images right breast 6:00 cyst 4 x 4 mm No solid nodules Sonographic images left breast 11:00 seroma 5.3 x 2.3 x 4.5 cm IMPRESSION: 11:00 left breast seroma, amenable to ultrasound-guided aspiration as clinically warranted
== END | disposition home or self-care (01) ==
LOC: CDIM 10:13
PROVIDERS: Referring Provider Internal Medicine Hematology & Oncology; Visit Provider Internal Medicine Hematology & Oncology
DX: N64.89 Other specified disorders of breast (principal); C50.212 Malignant neoplasm of upper-inner quadrant of left female breast
CPT/HCPCS: 76641

== ENCOUNTER → 2025-08-08 | Outpatient (CLI) | payer OTHER, SELFPAY ==
--- NOTE | 2025-08-08 14:22 | XR_ITS ---
Examination: Bilateral hands, 6 views. Technique: AP, Oblique, Lateral each hand total 6 views Date and time of exam: August 08, 2025, 1442 hours INDICATION: Bilateral hand and wrist pain beginning 3 weeks ago. FINDINGS: Mild osteopenia Mild diffuse narrowing joints of the wrist and hand Minor osteoarthritis interphalangeal joints No erosive arthritis No fractures or dislocations involving either hand IMPRESSION: No erosive or other significant arthritic change involving either hand
--- NOTE | 2025-08-08 14:22 | XR_ITS ---
EXAMINATION: Bilateral wrist 6 views TECHNIQUE: AP oblique lateral each wrist total 6 views Date and time: August 08, 2025, 1448 hours INDICATIONS: Bilateral wrist pain 3 weeks. FINDINGS: Mild diffuse narrowing radiocarpal intercarpal carpometacarpal joints, osteoarthritis No erosive arthritis No fractures No avascular necrosis IMPRESSION: Mild bilateral osteoarthritis
== END | disposition home or self-care (01) ==
LOC: CDIM 14:07
PROVIDERS: PCP Physician Assistant; Referring Provider Physician Assistant; Visit Provider Physician Assistant
DX: M19.032 Primary osteoarthritis, left wrist (principal); M19.031 Primary osteoarthritis, right wrist; M79.642 Pain in left hand; M79.641 Pain in right hand
CPT/HCPCS: 73110; 73130

== ENCOUNTER → 2025-08-18 | Outpatient (CLI) | payer OTHER, SELFPAY ==
--- NOTE | 2025-08-18 09:15 | XR_ITS ---
Examination: Diagnostic digital mammography, unilateral, left Computer aided detection 3-D breast Tomosynthesis, unilateral Date and time of exam: August 18, 2025, 0857 hours INDICATIONS: Personal history of breast cancer, left breast pain post surgery Technique: Nonmagnified MLO, CC views of the left breast have been obtained, reconstructed from 3-D Tomosynthesis images. R2 computer aided detection program utilized for evaluation of suspicious masses and/or abnormal calcifications. 3-D Tomosynthesis images obtained. Findings: The breast is heterogeneously dense, which may obscure small masses Surgical clips upper left breast No discrete breast mass Impression: BI-RADS category 0: Incomplete: Need additional imaging evaluation Given the patient's presentation recommend left breast sonography follow-up
== END | disposition home or self-care (01) ==
PROVIDERS: PCP Student in an Organized Health Care Education/Training Program; Referring Provider Student in an Organized Health Care Education/Training Program; Visit Provider Student in an Organized Health Care Education/Training Program
DX: R92.8 Other abnormal and inconclusive findings on diagnostic imaging of breast (principal)
CPT/HCPCS: 77061; 77065; G0279